=== PATIENT | male | born 1985 | race American Indian/Alaskan Native ===

== ENCOUNTER 2020-07-11 09:29 | Emergency (ER) | payer OTHER ==
[2020-07-11 10:23] LABS: Bilirubin,Urine NEG (Negative); Blood,Urine LG (Negative); Color,Urine Red (Yellow); Mucus,Urine FEW /HPF; RBC,Urine > 182.0 /HPF (0.0-6.0); WBC,Urine < 1.0 /HPF (0.0-6.0)
[2020-07-11] MEDS ORDERED: SILVER NITRATE APPLICATOR 1 EA TP ONE (11:15)
--- NOTE | 2020-07-11 12:53 | Emergency Department Report ---
ED Male HPI - General Chief complaint: Urogenital-Male Stated complaint: PENIS BLEEDING Time Seen by Provider: 07/11/20 11:04 Source: patient Mode of arrival: Ambulatory Limitations: No Limitations - History of Present Illness Initial comments: Patient is a 35-year-old male who presents emergency room with complaints of penile bleeding that began last night. Patient states that he is not circumcised. He states that he was intoxicated and having intercourse with a female. He states that he noticed bleeding but did not have any pain that he is aware of. He states it has been bleeding since last night. He still continues to have no pain. He denies any dysuria, issues with urination, urinary retention, penile discharge, lesions or blisters. He denies ever having this in the past. No past medical history. No allergies to medications. - Related Data Previous Rx's Medication Instructions Recorded Last Taken Type Neomycin/Bacitracin/Polymyxinb 1 applicatio TP BID #14 oint...g. 07/11/20 Unknown Rx [Triple Antibiotic Ointment] Allergies Allergy/AdvReac Type Severity Reaction Status Date / Time No Known Allergies Allergy Verified 07/11/20 09:35 ED Review of Systems ROS: Stated complaint: PENIS BLEEDING Other details as noted in HPI Comment: All other systems reviewed and negative ED Past Medical Hx - Past Medical History Previous Medical History?: No - Surgical History Past Surgical History?: No - Social History Smoking Status: Never Smoker Substance Use Type: None - Medications Home Medications: Home Medications Medication Instructions Recorded Confirmed Last Taken Type Neomycin/Bacitracin/Polymyxinb 1 applicatio TP BID #14 oint...g. 07/11/20 Unknown Rx [Triple Antibiotic Ointment] ED Physical Exam - General Limitations: No Limitations General appearance: alert, in no apparent distress - Head Head exam: Present: atraumatic, normocephalic - Eye Eye exam: Present: normal appearance - ENT ENT exam: Present: mucous membranes moist - exam: Absent: testicular tenderness, urethral discharge, scrotal swelling External exam: Present: other (there is a 0.5 cm tear present to the frenulum of the penis, there is small area of bleeding present, housing officer: adeline community services coordinator) - Neurological Exam Neurological exam: Present: alert, oriented X3 - Psychiatric Psychiatric exam: Present: normal affect, normal mood - Skin Skin exam: Present: warm, dry, intact ED Course Vital Signs 07/11/20 07/11/20 09:38 13:39 Temperature 97.9 F Pulse Rate 104 H 92 H Respiratory 18 18 Rate Blood Pressure 146/97 130/70 [Left] O2 Sat by Pulse 98 99 Oximetry ED Medical Decision Making - Lab Data Vital Signs 07/11/20 07/11/20 09:38 13:39 Temperature 97.9 F Pulse Rate 104 H 92 H Respiratory 18 18 Rate Blood Pressure 146/97 130/70 [Left] O2 Sat by Pulse 98 99 Oximetry - Medical Decision Making Patient is a 35-year-old male who presents emergency room with complaints of penile bleeding that began last night. Patient states that he is not circumcised. He states that he was intoxicated and having intercourse with a female. He states that he noticed bleeding but did not have any pain that he is aware of. He states it has been bleeding since last night. He still continues to have no pain. He denies any dysuria, issues with urination, urinary retention, penile discharge, lesions or blisters. He denies ever having this in the past. No past medical history. No allergies to medications. VSS. on exam: there is a 0.5 cm tear present to the frenulum of the penis, there is small area of bleeding present, housing officer: annette babb. kevin Babbedic was present during all examinations. very small piece of Surgicel placed on small area of bleeding and completely resolved, the tear is very small and does not go all the way through, it does not need repair, it will heal via secondary intention. Patient given prescription for triple antibiotic ointment to prevent infection. advised pt Please use medication as prescribed. Please wash area with soap and water twice a day and immediately dry. No hot tub, no pool, no soaking water. please avoid sexual intercourse to allow for healing. Follow-up with your primary care doctor. Follow-up with urologist. Return to emergency room for any new or worsening symptoms. Critical care attestation.: If time is entered above; I have spent that time in minutes in the direct care of this critically ill patient, excluding procedure time. ED Disposition Clinical Impression: Penis injury Qualifiers: Encounter type: initial encounter Qualified Code(s): S39.94XA - Unspecified injury of external genitals, initial encounter Disposition: DC-01 TO HOME OR SELFCARE Is pt being admited?: No Does the pt Need Aspirin: No Condition: Stable Instructions: Foreskin Care (ED) Additional Instructions: Please use medication as prescribed. Please wash area with soap and water twice a day and immediately dry. No hot tub, no pool, no soaking water. please avoid sexual intercourse to allow for healing. Follow-up with your primary care doctor. Follow-up with urologist. Return to emergency room for any new or worsening symptoms. Prescriptions: Neomycin/Bacitracin/Polymyxinb [Triple Antibiotic Ointment] 1 applicatio TP BID #14 oint...g. Referrals: CHARLY BANKS MD [Staff Physician] - 3-5 Days [facility] [Provider Group] - 3-5 Days MARNI TOWNSEND MD [Staff Physician] - 3-5 Days Time of Disposition: 12:54 Print Language: SWAZI
[2020-07-11 13:40] VITALS: BP 130/70
== END 2020-07-11 13:11 | disposition home or self-care (01) ==
LOC: ED 09:29
DX: S39.94XA Unspecified injury of external genitals, initial encounter (principal); Z79.899 Other long term (current) drug therapy; X58.XXXA Exposure to other specified factors, initial encounter; Y93.89 Activity, other specified; Y92.89 Other specified places as the place of occurrence of the external cause; Y99.8 Other external cause status
CPT/HCPCS: 81001